=== PATIENT | female | born 1940 | race Caucasian/White ===

== ENCOUNTER 2023-04-14 14:22 | Outpatient (REF) | payer MEDICARE, SELFPAY ==
[2023-04-14 15:48] LABS: Estimated Average Glucose 143 mg/dL; Hemoglobin A1c % 6.6 %
[2023-04-14 16:30] LABS: Anion Gap 12 (12-20); Blood Urea Nitrogen 23 mg/dL (9-16); Calcium 9.3 mg/dL (8.4-10.2); Carbon Dioxide 27 mmol/L (22-29); Chloride 106 mmol/L (96-108); Estimated Glomerular Filt Rate 58; Glucose Random 141 mg/dL (60-115); Potassium 4.3 mmol/L (3.3-5.1); Sodium 141 mmol/L (135-145)
[2023-04-14 16:37] LABS: Erythrocyte Sedimentation Rate 26 MM/HR (0-20)
[2023-04-14 17:03] LABS: Folate 15.9 ng/mL (> or = 4.0); Vitamin B12 406 pg/mL (200-900)
[2023-04-16 17:29] LABS: Lyme Abs Screen <0.90 index
[2023-04-17 15:03] LABS: IgA 544 mg/dL (70-320); IgG 1340 mg/dL (600-1540); IgM 67 mg/dL (50-300)
== END 2023-04-14 14:23 | disposition home or self-care (01) ==
LOC: HO.LAB 14:22
PROVIDERS: PCP Internal Medicine; Visit Provider Psychiatry & Neurology Neurology
DX: G62.9 Polyneuropathy, unspecified (principal); E11.9 Type 2 diabetes mellitus without complications
CPT/HCPCS: 36415; 80048; 82607; 82746; 82784; 83036; 85652; 86334; 86617; 86618

== ENCOUNTER 2023-04-17 09:26 | Outpatient (REF) | payer MEDICARE, SELFPAY ==
[2023-04-26 02:08] LABS: Arsenic, 24H Urine <10 mcg/L (<=80); Cadmium, 24H Urine <0.5 mcg/L (<=5.0); Lead, 24H Urine <10 mcg/L (<80); Mercury, 24H Urine <4 mcg/L (<=20)
== END 2023-04-17 09:27 | disposition home or self-care (01) ==
LOC: HO.LNP 09:26
PROVIDERS: Visit Provider Psychiatry & Neurology Neurology
DX: G62.9 Polyneuropathy, unspecified (principal)
CPT/HCPCS: 82175; 82300; 83655; 83825